=== PATIENT | female | born 1955 | race Caucasian/White ===

== ENCOUNTER 2021-07-22 08:14 | Day surgery (SDC) | payer MEDICARE ==
[2021-07-22] MEDS: Polymyxin B/Trimethoprim 10 ML Bottle EYERT SCH ×4 (09:05→10:45)
[2021-07-22] MEDS: Brimonidine 0.2% Ophth Soln 5 ML Bottle EYERT SCH ×4 (09:10→10:45)
[2021-07-22] MEDS: Phenylephrine 2.5% Ophth Soln 2 ML Bot EYERT SCH ×6 (09:15→10:31)
[2021-07-22] MEDS: Tropicamide 1% Ophth Soln 15 ML Bottle EYERT SCH ×4 (09:20→10:00)
[2021-07-22] MEDS: Tetracaine HCl/PF 0.5% 4 ML Bottle EYEBOTH SCH ×5 (10:02→10:34)
[2021-07-22] MEDS: Cefuroxime 10 MG/ML SYRINGE EYERT SCH ×2 (10:03→10:44)
[2021-07-22] MEDS: Lidocaine 1% PF 2 ML SDV INJECT SCH ×2 (10:03→10:35)
[2021-07-22] MEDS: Pilocarpine 4% Ophth Soln 15 ML Bot EYERT SCH ×2 (10:03→10:45)
== END 2021-07-22 11:00 | disposition home or self-care (01) ==
LOC: JD.SDS 08:14
PROVIDERS: ATTEND Ophthalmology
DX: E11.36 Type 2 diabetes mellitus with diabetic cataract (principal); H25.813 Combined forms of age-related cataract, bilateral; H16.223 Keratoconjunctivitis sicca, not specified as Sjogren's, bilateral; H02.831 Dermatochalasis of right upper eyelid; H02.834 Dermatochalasis of left upper eyelid; J45.909 Unspecified asthma, uncomplicated; Z79.899 Other long term (current) drug therapy
CPT/HCPCS: 66984; 82947; C1780; J0697